=== PATIENT | male | born 1985 | race Caucasian/White ===

== ENCOUNTER 2016-08-01 19:28 | Emergency (ER) | payer OTHER ==
[2016-08-01 21:03] LABS: AMPHETAMINE QUAL UR NONE DETECTED (NEG <=1000)
[2016-08-01 21:09] LABS: BASOPHIL % 0.4 % (0-2); PLATELET COUNT 173 x10^3mcL (130-400); RED CELL DISTRIBUTION WIDTH 12.4 % (11.5-14.5)
[2016-08-01 21:16] LABS: CALCIUM 8.9 mg/dL (8.5-10.1); CARBON DIOXIDE 25.8 mmol/L (21-32); CHLORIDE SERUM 105 mmol/L (98-107); CREATININE SERUM 1.2 mg/dL (0.7-1.3); GFR1 > 60 mL/min; GLUCOSE SERUM 71 mg/dL (74-106); POTASSIUM SERUM 3.6 mmol/L (3.5-5.1); SODIUM SERUM 141 mmol/L (136-145)
[2016-08-01 21:21] LABS: ALBUMIN 4.5 g/dL (3.4-5.0); ALKALINE PHOSPHATASE 65 U/L (46-116); ALT/SGPT 20 U/L (16-63); AST/SGOT 18 U/L (15-37); BILIRUBIN TOTAL 0.7 mg/dL (0.20-1.00); TOTAL PROTEIN, SERUM 7.2 g/dL (6.4-8.2)
[2016-08-01] MEDS ORDERED: RESTORIL15 MG PO (21:40)
[2016-08-01] MEDS ORDERED: ATRIPLA1 TAB PO (21:40)
[2016-08-02 05:36] VITALS: BP 132/75
== END 2016-08-02 05:38 ==
LOC: ED 19:28
PROVIDERS: Emergency Medicine
DX: Z00.00 Encounter for general adult medical examination without abnormal findings (principal); R45.851 Suicidal ideations; J45.909 Unspecified asthma, uncomplicated
CPT/HCPCS: 80307; G0480; Q0163